=== PATIENT | female | born 1935 | race Caucasian/White ===

== ENCOUNTER 2023-11-01 14:54 | Emergency (ER) | payer OTHER ==
[~2023-11-01] VITALS: Ht 152.4 cm; Wt 58.1 kg
[~2023-11-01 14:54] MED LIST: Aspir 8181 MG PO; CHOL10002 PO; HYDACE10B PO; Halcion0.25 MG PO; LEVFLO500 PO; LOSA50 PO; METF500 PO; SIMV10 PO
[2023-11-01 15:38] LABS: BASOPHILS ABSOLUTE AUTO 0.04 K/mm3 (0.00-0.23); BASOPHILS PERCENT AUTO 0 % (0-2); EOSINOPHILS ABSOLUTE AUTO 0.17 K/mm3 (0.00-0.68); EOSINOPHILS PERCENT AUTO 1 % (0-6); Hematocrit 42.3 % (33.0-51.0); Hemoglobin 13.4 g/dL (11.5-16.0); IMMATURE GRAN ABSOLUTE AUTO 0.06 K/mm3 (0.00-0.10); IMMATURE GRAN PERCENT AUTO 1 % (0-1); LYMPHOCYTES PERCENT AUTO 23 % (21-46); MONOCYTES ABSOLUTE AUTO 1.31 K/mm3 (0.16-1.47); MONOCYTES PERCENT AUTO 10 % (4-13); Mean Corpuscular HGB 31.5 pg (26.0-34.0); Mean Corpuscular HGB Conc 31.7 g/dL (31.5-36.5); Mean Corpuscular Volume 99 fL (80-100); Mean Platelet Volume 12.7 fL (9.1-12.4); NEUTROPHILS ABSOLUTE AUTO 8.34 K/mm3 (1.96-9.15); NEUTROPHILS PERCENT AUTO 65 % (41-73); Platelet Count 210 K/mm3 (150-400); RDW Coefficient Variation 14.7 % (11.7-14.2); RDW Standard Deviation 53.1 fL (35.1-46.3); Red Blood Cell Count 4.26 M/mm3 (3.80-5.20); White Blood Cell Count 12.82 K/mm3 (4.00-11.30)
[2023-11-01 15:56] LABS: Albumin, Blood 3.2 g/dL (3.4-5.0); Albumin/Globulin Ratio 0.8 (0.8-1.8); Bilirubin, Total 0.4 mg/dL (0.1-1.0); Bun/Creatinine Ratio 11.6 (12.0-20.0); Calcium, Blood 9.5 mg/dL (8.5-10.1); Creatinine, Blood 3.02 mg/dL (0.40-1.00); Globulin, Blood 3.8 g/dL (2.2-4.0); Potassium, Blood 4.4 mmol/L (3.5-5.5)
[2023-11-01 16:59] LABS: Source, Urine Clean Catch
[2023-11-01 17:06] LABS: Appearance, Urine Cloudy (Clear); Bilirubin, Urine Neg (Neg); Blood, Urine 2+ (Neg); Color, Urine Yellow (P-Yellow); Glucose Qualitative, Urine 4+ (Neg); Ketones, Urine Neg (Neg); Leukocyte Esterase, Urine 3+ (Neg); Nitrite, Urine Neg (Neg); Protein, Urine 2+ (Neg); Urobilinogen, Urine NORM (Normal)
[2023-11-01 17:17] LABS: White Blood Cells, Urine 50-100 /hpf (0-5)
[2023-11-01 17:18] LABS: Bacteria Few /hpf; Hyaline Casts 0-2 /lpf (0-2); Squamous Epithelial Cells Many /hpf (Few); Yeast/Fungi Urine Many /hpf
[2023-11-01 17:19] LABS: Transitional Epithelial Cells Rare /hpf (0-Rare)
[2023-11-01 17:59] VITALS: BP 183/74
== END 2023-11-01 18:00 | disposition home or self-care (01) ==
LOC: ER 14:54
PROVIDERS: Emergency Medicine
DX: S82.65XA Nondisplaced fracture of lateral malleolus of left fibula, initial encounter for closed fracture (principal); W18.30XA Fall on same level, unspecified, initial encounter; I12.0 Hypertensive chronic kidney disease with stage 5 chronic kidney disease or end stage renal disease; E11.22 Type 2 diabetes mellitus with diabetic chronic kidney disease; N18.5 Chronic kidney disease, stage 5; E78.5 Hyperlipidemia, unspecified; J44.9 Chronic obstructive pulmonary disease, unspecified; F17.210 Nicotine dependence, cigarettes, uncomplicated; Z96.643 Presence of artificial hip joint, bilateral; Z88.5 Allergy status to narcotic agent; Z88.8 Allergy status to other drugs, medicaments and biological substances; Z88.6 Allergy status to analgesic agent; Z79.84 Long term (current) use of oral hypoglycemic drugs; Z79.899 Other long term (current) drug therapy
CPT/HCPCS: 72170; 73562-LT; 73610; 80053; 81001; 85025; 87086; 93005; 93010; 99284-25

== ENCOUNTER 2023-11-02 14:05 | Emergency (ER) | payer OTHER ==
[~2023-11-02] VITALS: Ht 152.4 cm; Wt 58.1 kg
[2023-11-02 15:48] LABS: BASOPHILS ABSOLUTE AUTO 0.03 K/mm3 (0.00-0.23); BASOPHILS PERCENT AUTO 0 % (0-2); EOSINOPHILS ABSOLUTE AUTO 0.22 K/mm3 (0.00-0.68); EOSINOPHILS PERCENT AUTO 2 % (0-6); Hematocrit 40.4 % (33.0-51.0); Hemoglobin 12.9 g/dL (11.5-16.0); IMMATURE GRAN ABSOLUTE AUTO 0.05 K/mm3 (0.00-0.10); IMMATURE GRAN PERCENT AUTO 0 % (0-1); LYMPHOCYTES ABSOLUTE AUTO 2.62 K/mm3 (0.84-5.20); LYMPHOCYTES PERCENT AUTO 22 % (21-46); MONOCYTES ABSOLUTE AUTO 1.23 K/mm3 (0.16-1.47); MONOCYTES PERCENT AUTO 10 % (4-13); Mean Corpuscular HGB 31.5 pg (26.0-34.0); Mean Corpuscular HGB Conc 31.9 g/dL (31.5-36.5); Mean Corpuscular Volume 99 fL (80-100); NEUTROPHILS ABSOLUTE AUTO 7.65 K/mm3 (1.96-9.15); NEUTROPHILS PERCENT AUTO 65 % (41-73); Platelet Count 199 K/mm3 (150-400); RDW Coefficient Variation 14.7 % (11.7-14.2); RDW Standard Deviation 53.9 fL (35.1-46.3); Red Blood Cell Count 4.09 M/mm3 (3.80-5.20)
[2023-11-02 15:49] LABS: Mean Platelet Volume 13.4 fL (9.1-12.4)
[2023-11-02 16:15] LABS: Albumin, Blood 3.2 g/dL (3.4-5.0); Albumin/Globulin Ratio 0.8 (0.8-1.8); Bilirubin, Total 0.4 mg/dL (0.1-1.0); Bun/Creatinine Ratio 11.3 (12.0-20.0); Calcium, Blood 9.7 mg/dL (8.5-10.1); Creatinine, Blood 2.91 mg/dL (0.40-1.00); Globulin, Blood 4.1 g/dL (2.2-4.0); Magnesium, Blood 2.3 mg/dL (1.6-2.4); Total Protein, Blood 7.3 g/dL (6.4-8.2)
[2023-11-02 18:36] VITALS: BP 145/85
== END 2023-11-02 18:36 | disposition home or self-care (01) ==
LOC: ER 14:05
PROVIDERS: Emergency Medicine
DX: S30.0XXA Contusion of lower back and pelvis, initial encounter (principal); W18.30XA Fall on same level, unspecified, initial encounter; I12.0 Hypertensive chronic kidney disease with stage 5 chronic kidney disease or end stage renal disease; E11.22 Type 2 diabetes mellitus with diabetic chronic kidney disease; N18.5 Chronic kidney disease, stage 5; J44.9 Chronic obstructive pulmonary disease, unspecified; F17.210 Nicotine dependence, cigarettes, uncomplicated
CPT/HCPCS: 72170; 80053; 83735; 85025; 99284-25

== ENCOUNTER 2024-05-31 12:51 | Inpatient (IN) | payer OTHER ==
[~2024-05-31] VITALS: Ht 152.4 cm; Wt 56.9 kg
[2024-05-31] MEDS ORDERED: NS 1,000 ML IV SCH ×2 (13:15→16:35)
[2024-05-31 13:33] LABS: BASOPHILS ABSOLUTE AUTO 0.03 K/mm3 (0.00-0.23); BASOPHILS PERCENT AUTO 0 % (0-2); EOSINOPHILS ABSOLUTE AUTO 0.02 K/mm3 (0.00-0.68); EOSINOPHILS PERCENT AUTO 0 % (0-6); Hematocrit 43.5 % (33.0-51.0); Hemoglobin 14.1 g/dL (11.5-16.0); IMMATURE GRAN ABSOLUTE AUTO 0.06 K/mm3 (0.00-0.10); IMMATURE GRAN PERCENT AUTO 0 % (0-1); LYMPHOCYTES PERCENT AUTO 9 % (21-46); MONOCYTES ABSOLUTE AUTO 1.16 K/mm3 (0.16-1.47); MONOCYTES PERCENT AUTO 9 % (4-13); Mean Corpuscular HGB 31.6 pg (26.0-34.0); Mean Corpuscular HGB Conc 32.4 g/dL (31.5-36.5); Mean Corpuscular Volume 98 fL (80-100); NEUTROPHILS ABSOLUTE AUTO 11.11 K/mm3 (1.96-9.15); NEUTROPHILS PERCENT AUTO 82 % (41-73); Platelet Count 194 K/mm3 (150-400); RDW Coefficient Variation 13.9 % (11.7-14.2); RDW Standard Deviation 49.3 fL (35.1-46.3); Red Blood Cell Count 4.46 M/mm3 (3.80-5.20); White Blood Cell Count 13.58 K/mm3 (4.00-11.30)
[2024-05-31 13:35] LABS: Source, Urine Fem Cath
[2024-05-31 13:36] LABS: Mean Platelet Volume 14.2 fL (9.1-12.4)
[2024-05-31 13:40] LABS: Appearance, Urine Turbid (Clear); Bilirubin, Urine Neg (Neg); Blood, Urine 4+ (Neg); Glucose Qualitative, Urine 3+ (Neg); Ketones, Urine Neg (Neg); Leukocyte Esterase, Urine 3+ (Neg); Nitrite, Urine Neg (Neg); Protein, Urine 3+ (Neg); Specific Gravity, Urine 1.025 (1.003-1.022); Urobilinogen, Urine NORM (Normal)
[2024-05-31 13:50] LABS: Color, Urine Pale Yellow (P-Yellow)
[2024-05-31 13:54] LABS: Bacteria Many /hpf; Red Blood Cells, Urine TNTC /hpf (0-2); Renal Epithelial Rare /hpf (0-Rare); Squamous Epithelial Cells Many /hpf (Few); White Blood Cells, Urine TNTC /hpf (0-5); Yeast/Fungi Urine Few /hpf
[2024-05-31 13:57] LABS: Albumin, Blood 3.2 g/dL (3.4-5.0); Albumin/Globulin Ratio 0.9 (0.8-1.8); Bilirubin, Total 0.4 mg/dL (0.1-1.0); Bun/Creatinine Ratio 12.5 (12.0-20.0); Calcium, Blood 9.8 mg/dL (8.5-10.1); Creatinine, Blood 3.76 mg/dL (0.40-1.00); Globulin, Blood 3.7 g/dL (2.2-4.0); Potassium, Blood 4.2 mmol/L (3.5-5.5); Total Protein, Blood 6.9 g/dL (6.4-8.2)
[2024-05-31] MEDS ORDERED: CefTRIAXone Sodium 1,000 MG in NS 100 ML IV ONE (14:40)
[2024-05-31] MEDS ORDERED: Ondansetron HCl 2 MG / ML 2ML Vial IV PRN ×2 (16:35→16:40)
[2024-05-31] MEDS ORDERED: Acetaminophen 325 MG TABLET PO PRN (16:35)
[2024-05-31] MEDS ORDERED: HYDROcodone 10-APAP 325 TAB PO PRN (16:40)
[2024-05-31] MEDS ORDERED: Magnesium Hydroxide Conc 10 ML UDC PO PRN (16:40)
[2024-05-31] MEDS ORDERED: HydrALAZINE HCl 20 MG / ML 1ML Vial IV PRN (16:40)
[2024-05-31] MEDS ORDERED: NS 1,000 ML IV ONE (18:03)
[2024-05-31 18:58] VITALS: BP 198/57
[2024-05-31 19:09] VITALS: BP 171/63
[2024-05-31] MEDS ORDERED: Lactobacil 2-S.Thermo-Bifido 1 1 Cap PO SCH (21:00)
[2024-06-01 02:41] VITALS: BP 153/69
--- NOTE | 2024-06-01 06:14 | NUR ---
pt alert and oriented x2 at shift change HS. pt hallucinating. C/O bats flying around in her room. Increasingly confused during the night. Confused and agitated with lab draws this am. Pt refused labs this am.
--- NOTE | 2024-06-01 07:22 | NUR ---
MD notified of pts urine output throughput through the night. MD aware of labs and pts current status.
[2024-06-01 07:43] VITALS: BP 153/113
[2024-06-01] MEDS ORDERED: Heparin Sodium,Porcine 5,000 UNIT/0.5 ML SDV SC SCH (09:00)
[2024-06-01] MEDS ORDERED: CefTRIAXone Sodium 1,000 MG in NS 100 ML IV SCH (09:00)
[2024-06-01 10:30] LABS: Source, Urine Clean Catch
--- NOTE | 2024-06-01 10:35 | NUR ---
FAMILY UPDATE PT DAUGHTER "RICKY" CALLED FOR AN UPDATE. SHE REPORTS THAT HER MOM TAKES A DAILY ANTIBIOTIC AT BASELINE FOR CHRONIC UTI FROM DR MARTIN. UNABLE TO RECALL WHAT IT IS CALLED, STATES HER MED LIST IS "PRETTY LONG".
[2024-06-01 10:36] LABS: Appearance, Urine Hazy (Clear); Bilirubin, Urine Neg (Neg); Blood, Urine 3+ (Neg); Glucose Qualitative, Urine 3+ (Neg); Ketones, Urine 1+ (Neg); Leukocyte Esterase, Urine 2+ (Neg); Nitrite, Urine Neg (Neg); Protein, Urine 2+ (Neg); Specific Gravity, Urine 1.015 (1.003-1.022); Urobilinogen, Urine NORM (Normal)
[2024-06-01 10:50] LABS: Color, Urine Pale Yellow (P-Yellow)
[2024-06-01 10:51] LABS: White Blood Cells, Urine 25-50 /hpf (0-5); Yeast/Fungi Urine Many /hpf
[2024-06-01 10:53] LABS: Bacteria Few /hpf; Red Blood Cells, Urine 0-2 /hpf (0-2); Squamous Epithelial Cells Many /hpf (Few)
[2024-06-01 14:46] VITALS: BP 187/60
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
--- NOTE | 2024-06-01 15:08 | NUR ---
SHIFT SUMMARY PT BROUGHT IN AFTER BEING FOUND DOWN FOR 2 DAYS PER REPORT, SHE IS CONFUSED T/O THE DAY TODAY BUT PLEASANT WITH STAFF. ACCUSES STAFF OF EXPIRAMENTING ON HER WITH NEW MEDICATIONS BUT SHE ALSO REPORTED THAT SHE WASN'T TRYING TO BE MEAN TO STAFF AND WAS JUST JOKING AROUND WITH US. ASSURED HER THAT I WAS NOT OFFENDED. IV FLUIDS INFUSING T/O THE SHIFT TODAY, PRN HYDRALAZINE GIVEN FOR HER BP TODAY. FAMILY CAME IN TO VISIT WHO REPORTED THAT SHE WAS CONFUSED AT BASELINE AND HAS BEEN GROWING MORE CONFUSED LATELY. PT DOES NOT APPEAR TO BE IMPULSIVE AND HAS NOT TRIED GETTING UP ON HER OWN, SHE HAD A FEW SMALL VOIDS TODAY AND A BM. EKG PERFORMED BY THIS RN AND PLACED IN HER PAPER CHART. NO ACUTE EVENTS THIS SHIFT, CALL LIGHT IN REACH.
[2024-06-01 19:12] VITALS: BP 155/65
[2024-06-02] VITALS (9 sets, daily range): BP systolic 151–209; BP diastolic 62–98
--- NOTE | 2024-06-02 04:48 | NUR ---
SHIFT SUMMARY PATIENT SLEPT WELL AFTER GETTING HER SLEEP MEDICATION ORDER FROM THE HOSPITALIST.TELE SR 78. WITH PAC'S.
[2024-06-02 08:07] LABS: BASOPHILS ABSOLUTE AUTO 0.06 K/mm3 (0.00-0.23); BASOPHILS PERCENT AUTO 1 % (0-2); EOSINOPHILS ABSOLUTE AUTO 0.22 K/mm3 (0.00-0.68); EOSINOPHILS PERCENT AUTO 2 % (0-6); Hematocrit 36.6 % (33.0-51.0); Hemoglobin 11.7 g/dL (11.5-16.0); IMMATURE GRAN ABSOLUTE AUTO 0.12 K/mm3 (0.00-0.10); IMMATURE GRAN PERCENT AUTO 1 % (0-1); LYMPHOCYTES ABSOLUTE AUTO 2.77 K/mm3 (0.84-5.20); LYMPHOCYTES PERCENT AUTO 23 % (21-46); MONOCYTES PERCENT AUTO 10 % (4-13); Mean Corpuscular Volume 97 fL (80-100); NEUTROPHILS ABSOLUTE AUTO 7.64 K/mm3 (1.96-9.15); NEUTROPHILS PERCENT AUTO 64 % (41-73); Platelet Count 171 K/mm3 (150-400); RDW Coefficient Variation 14.2 % (11.7-14.2); RDW Standard Deviation 50.4 fL (35.1-46.3); Red Blood Cell Count 3.77 M/mm3 (3.80-5.20); White Blood Cell Count 12.01 K/mm3 (4.00-11.30)
[2024-06-02 08:15] LABS: Mean Platelet Volume 13.6 fL (9.1-12.4)
[2024-06-02 08:27] LABS: Albumin, Blood 2.3 g/dL (3.4-5.0); Albumin/Globulin Ratio 0.8 (0.8-1.8); Bilirubin, Total 0.4 mg/dL (0.1-1.0); Bun/Creatinine Ratio 11.6 (12.0-20.0); Calcium, Blood 8.8 mg/dL (8.5-10.1); Creatinine, Blood 3.29 mg/dL (0.40-1.00); Magnesium, Blood 2.1 mg/dL (1.6-2.4); Phosphorus, Blood 5.1 mg/dL (2.5-4.9); Potassium, Blood 3.4 mmol/L (3.5-5.5); Total Protein, Blood 5.3 g/dL (6.4-8.2)
[2024-06-02] MEDS ORDERED: Potassium Chloride 10 Meq Tablet SA PO ONE (09:15)
[2024-06-02] MEDS ORDERED: HYDROCODONE-AC1 EAC7 PO (11:22)
[2024-06-02] MEDS ORDERED: Halcion0.25 MG PO (11:23)
[2024-06-02] MEDS ORDERED: METO50ER PO (11:24)
[2024-06-02] MEDS ORDERED: CALC.25 PO (11:25)
[2024-06-02] MEDS ORDERED: Carvedilol 6.25 MG Tab PO SCH (12:52)
--- NOTE | 2024-06-02 18:37 | NUR ---
PT HAS DDONE VERY WELL TODAY SMALL BOUTRS OF CONFUSION BUT HAS BEEN VERY COOPERATIVE WITH CARE, GETTING OUT OF FOR EVERY MEAL AND WORKING WITH PHYSICAL THERAPY. POSSIBLE SNF TRANSFER IN THE MORNING, PT SAID SHE WOULD THINK ABOOUT IT. DAUGHTER WAS CONCERNED PT WOULD BE SENT BACK HOME AND AT RISK OF FALLING
--- NOTE | 2024-06-02 21:44 | NUR ---
NEW ORDER FROM ON-CALL HOSPITALIST IRINEO: AMLODEPINE 5MG PO NOW, ONCE. PT'S BP MANUAL (SEE VS ) LAST . PT IS ASYMPTOMATIC. (PRN HYDRAZALINE 10MG WAS ADMINISTERED EARLIER ON THIS SHIFT (SEE VS.) NOT EFFECTIVE. WILL CONTINUE TO MONITOR, AND TAKE MANUAL BP'S. CHARGE NURSE NOTIFIED.
[2024-06-02] MEDS ORDERED: AmLODIPine Besylate 5 MG Tab PO ONE (21:45)
[2024-06-03 01:15] VITALS: BP 180/82
[2024-06-03 03:37] VITALS: BP 148/67
--- NOTE | 2024-06-03 04:01 | NUR ---
SHIFT SUMMARY PT IS A&O X2-3, ABLE TO MAKE HER NEEDS KNOWN. PT DENIES PAIN AND DISCOMFORT DURING THIS SHIFT. PT HAD ELEVATED BP AT HS: PRN HYDRAZALINE IV ADMINISTERED WITH NO EFFECTIVNESS. THIS FIRE MARSHAL REFINERY CONTACTED ON-CALL HOSPITALIST CRISTIANO CABELLO. NEW ORDER: AMLODEPINE 5MG IV ONCE.BP'S TAKEN MANUALLY/ THE RIGHT ARM. TELE: SINUS@86 WITH PAC'S. PT HAD A LOOSE STOOL AROUND 0400. PER TWO LARRIMAN'S, STRONG ODOR DETECTED,AND THIS FIRE MARSHAL REFINERY CONTACTED REGISTERED DENTAL ASSISTANT HOSPITALIST DR. BAXTER FOR A POSSIBLE STOOL SAMPLE ORDER. WILL HOLD OFF AND MONITOR, IF PT CONTINUES TO HAVE LOOSE STOOLS. NO NEW ORDERS. PT.RESTING WELL T/O THIS SHIFT. NO ACUTE EVENTS DURING THIS SHIFT. BED AT THE LOWEST POSITION, CALL LIGHT IN REACH.
[2024-06-03 06:22] LABS: BASOPHILS ABSOLUTE AUTO 0.06 K/mm3 (0.00-0.23); BASOPHILS PERCENT AUTO 1 % (0-2); EOSINOPHILS ABSOLUTE AUTO 0.15 K/mm3 (0.00-0.68); EOSINOPHILS PERCENT AUTO 1 % (0-6); Hematocrit 38.1 % (33.0-51.0); Hemoglobin 12.5 g/dL (11.5-16.0); IMMATURE GRAN ABSOLUTE AUTO 0.11 K/mm3 (0.00-0.10); IMMATURE GRAN PERCENT AUTO 1 % (0-1); LYMPHOCYTES ABSOLUTE AUTO 1.71 K/mm3 (0.84-5.20); LYMPHOCYTES PERCENT AUTO 14 % (21-46); MONOCYTES ABSOLUTE AUTO 1.01 K/mm3 (0.16-1.47); MONOCYTES PERCENT AUTO 9 % (4-13); Mean Corpuscular HGB 31.6 pg (26.0-34.0); Mean Corpuscular HGB Conc 32.8 g/dL (31.5-36.5); Mean Corpuscular Volume 96 fL (80-100); NEUTROPHILS ABSOLUTE AUTO 8.85 K/mm3 (1.96-9.15); NEUTROPHILS PERCENT AUTO 74 % (41-73); Platelet Count 171 K/mm3 (150-400); RDW Coefficient Variation 14.1 % (11.7-14.2); RDW Standard Deviation 49.4 fL (35.1-46.3); Red Blood Cell Count 3.96 M/mm3 (3.80-5.20); White Blood Cell Count 11.89 K/mm3 (4.00-11.30)
[2024-06-03 06:44] LABS: Albumin, Blood 2.4 g/dL (3.4-5.0); Albumin/Globulin Ratio 0.8 (0.8-1.8); Bilirubin, Total 0.4 mg/dL (0.1-1.0); Bun/Creatinine Ratio 12.1 (12.0-20.0); Calcium, Blood 9.1 mg/dL (8.5-10.1); Creatinine, Blood 3.07 mg/dL (0.40-1.00); Globulin, Blood 3.1 g/dL (2.2-4.0); Potassium, Blood 3.7 mmol/L (3.5-5.5); Total Protein, Blood 5.5 g/dL (6.4-8.2)
[2024-06-03 07:37] VITALS: BP 155/68
[2024-06-03] MEDS ORDERED: Losartan Potassium 50 MG Tab PO SCH (09:00)
[2024-06-03 16:08] VITALS: BP 192/61
--- NOTE | 2024-06-03 18:07 | NUR ---
VERY PLEASENT PT COOPERATIVE WITH CARE, PT HAD NAUSEA AND DIARRHEA TODAY POSSIBLY RELATED TO ANTIBIOTIC. SAMPLES WERE SENT FOR CDIFF, AWAITING RESULTS. NO CHANGE. PT ABLE TO MAKE NEEDS KNOWN.
[2024-06-03 19:45] VITALS: BP 182/65
[2024-06-03] MEDS ORDERED: Melatonin 3 MG Tab PO SCH (21:00)
[2024-06-04 04:07] VITALS: BP 192/67
--- NOTE | 2024-06-04 06:24 | NUR ---
SHIFT SUMMARY NO EMESIS DURING THIS SHIFT, C/O MILD NAUSEA AND MILD ABD PAIN, PT. DECLINED A NEED FOR MEDICATIONS. PT IN ON ENTERIC PRECAUTIONS, D/T C-DIFF LAB RESULTS PENDING. PT REPORTS MILD HEARTBURN THIS AM. PT RESTING T/O THIS SHIFT. NO ACUTE EVENTS/DISTRESS NOTED/REPORTED DURING THIS SHIFT. PT ABLE TO MAKE HER NEEDS KNOWN. BED AT THE LOWEST POSITION, CALL LIGHT IN REACH.
[2024-06-04 06:32] LABS: BASOPHILS ABSOLUTE AUTO 0.05 K/mm3 (0.00-0.23); BASOPHILS PERCENT AUTO 0 % (0-2); EOSINOPHILS ABSOLUTE AUTO 0.01 K/mm3 (0.00-0.68); EOSINOPHILS PERCENT AUTO 0 % (0-6); Hematocrit 38.4 % (33.0-51.0); Hemoglobin 12.5 g/dL (11.5-16.0); IMMATURE GRAN ABSOLUTE AUTO 0.14 K/mm3 (0.00-0.10); IMMATURE GRAN PERCENT AUTO 1 % (0-1); LYMPHOCYTES ABSOLUTE AUTO 1.44 K/mm3 (0.84-5.20); LYMPHOCYTES PERCENT AUTO 10 % (21-46); MONOCYTES ABSOLUTE AUTO 0.69 K/mm3 (0.16-1.47); MONOCYTES PERCENT AUTO 5 % (4-13); Mean Corpuscular HGB 31.3 pg (26.0-34.0); Mean Corpuscular HGB Conc 32.6 g/dL (31.5-36.5); Mean Corpuscular Volume 96 fL (80-100); NEUTROPHILS ABSOLUTE AUTO 11.96 K/mm3 (1.96-9.15); NEUTROPHILS PERCENT AUTO 84 % (41-73); Platelet Count 197 K/mm3 (150-400); RDW Coefficient Variation 14.1 % (11.7-14.2); RDW Standard Deviation 49.6 fL (35.1-46.3); Red Blood Cell Count 3.99 M/mm3 (3.80-5.20); White Blood Cell Count 14.29 K/mm3 (4.00-11.30)
[2024-06-04 06:39] LABS: Albumin, Blood 2.5 g/dL (3.4-5.0); Albumin/Globulin Ratio 0.8 (0.8-1.8); Bilirubin, Total 0.4 mg/dL (0.1-1.0); Bun/Creatinine Ratio 13.3 (12.0-20.0); Calcium, Blood 9.3 mg/dL (8.5-10.1); Globulin, Blood 3.3 g/dL (2.2-4.0); Potassium, Blood 3.8 mmol/L (3.5-5.5); Total Protein, Blood 5.8 g/dL (6.4-8.2)
[2024-06-04 07:10] LABS: C DIFFICILE DNA POSITIVE (Negative)
[2024-06-04 07:35] VITALS: BP 178/57
[2024-06-04] MEDS ORDERED: Vancomycin HCl 125 MG Cap PO SCH (09:00)
[2024-06-04 15:18] VITALS: BP 188/64
--- NOTE | 2024-06-04 18:23 | NUR ---
REPORT RECEIVED VERIFIED. PT DOING VERY WELL TODAY STARTED ON VANCO FOR POSSIBLE CDIFF PROLIFORATION. VSS HARISH VERY WELL, ENC TO GET OUT OF BED FOR EVERY MEAL. PT OT WORKED WITH PT AND CASE MANAGEMENT SETTING SNF FOR PT. NO C/O PAIN JUST A LITTLE NAUSEA
[2024-06-04 19:38] VITALS: BP 167/71
[2024-06-05 02:19] VITALS: BP 189/68
--- NOTE | 2024-06-05 03:35 | NUR ---
OFFICE MACHINE TECHNICIAN SUMMARY BP ELEVATED, OTHERWISE VSS. ANTIHYPERTENSIVE CARDIOLOGY TEACHER. AM RN REPORTED PT POSITIVE FOR C-DIFF. INCONT OF URINE, CHANGED. ABLE TO REPOSITION SELF IN BED WITHOUT ASSIST. MED TELE SR IN THE 60'S. RECEIVING PO VANCO FOR C-DIFF. HAS BEEN RESTING QUIETLY WITH OCASIONAL INTERRUPTION. CALL LIGHT IN REACH, RAILS UP X 2 AND BED IN LOW POSITION FOR SAFETY. ISOLATION PRECAUTIONS MAINTAINED. WILL CONTINUE TO MONITOR.
[2024-06-05 05:50] LABS: BASOPHILS ABSOLUTE AUTO 0.03 K/mm3 (0.00-0.23); BASOPHILS PERCENT AUTO 0 % (0-2); EOSINOPHILS ABSOLUTE AUTO 0.01 K/mm3 (0.00-0.68); EOSINOPHILS PERCENT AUTO 0 % (0-6); Hematocrit 36.6 % (33.0-51.0); Hemoglobin 12.1 g/dL (11.5-16.0); IMMATURE GRAN PERCENT AUTO 1 % (0-1); LYMPHOCYTES ABSOLUTE AUTO 1.37 K/mm3 (0.84-5.20); LYMPHOCYTES PERCENT AUTO 12 % (21-46); MONOCYTES ABSOLUTE AUTO 1.26 K/mm3 (0.16-1.47); MONOCYTES PERCENT AUTO 11 % (4-13); Mean Corpuscular HGB 31.6 pg (26.0-34.0); Mean Corpuscular HGB Conc 33.1 g/dL (31.5-36.5); Mean Corpuscular Volume 96 fL (80-100); NEUTROPHILS PERCENT AUTO 77 % (41-73); Platelet Count 185 K/mm3 (150-400); RDW Coefficient Variation 14.1 % (11.7-14.2); RDW Standard Deviation 49.4 fL (35.1-46.3); Red Blood Cell Count 3.83 M/mm3 (3.80-5.20); White Blood Cell Count 11.77 K/mm3 (4.00-11.30)
[2024-06-05 06:13] LABS: Bun/Creatinine Ratio 15.2 (12.0-20.0); Calcium, Blood 9.5 mg/dL (8.5-10.1); Creatinine, Blood 3.16 mg/dL (0.40-1.00); Potassium, Blood 3.9 mmol/L (3.5-5.5)
[2024-06-05 08:42] VITALS: BP 188/66
[2024-06-05 09:43] VITALS: BP 170/62
[2024-06-05] MEDS ORDERED: Lactated Ringer's 1,000 ML IV SCH (11:00)
[2024-06-05 15:58] VITALS: BP 192/95
[2024-06-05 16:52] VITALS: BP 170/84
[2024-06-05] MEDS ORDERED: Carvedilol 6.25 MG Tab PO SCH (17:00)
--- NOTE | 2024-06-05 18:21 | NUR ---
SHIFT SUMMARY PATIENT A/OX4 THIS SHIFT, BUT FORGETFUL. SPOKE WITH PATIENT'S SISTER THIS MORNING VIA TELEPHONE AND UPDATED HER ON PATIENT STATUS PER PATIENT'S REQUEST. PRN HYDRALAZINE GIVEN X2 THIS SHIFT FOR SBP 190s. PATIENT 1 PERSON ASSIST WITH TRANSFERS, UP IN CHAIR FOR BREAKFAST BUT REFUSED TO GET UP FOR LUNCH AND DINNER. PATIENT WITH LOW APPETITE, SILVER MINER ASSESSED PATIENT THIS AFTERNOON. NO BOWEL MOVEMENTS THIS SHIFT. NO OTHER CONCERNS AT THIS TIME.
[2024-06-05 19:33] VITALS: BP 180/68
[2024-06-06 02:40] VITALS: BP 185/63
--- NOTE | 2024-06-06 03:39 | NUR ---
NATIONAL INSURANCE OFFICER SUMMARY BP REMAINS ELEVATED, OTHERWISE VSS. VOICED HASNT HAD A BM "FOR TWO DAYS", NO NOTED LOOSE STOOL BUT REMAINS ON ISOLATION PRECAUTIONS UNTIL C-DIFF IS NEGATIVE. ALERT TO QUESTIONS ASKED. RESPS EVEN BUT REMAIN DIMINISHED TO AUSCULTATION. REQUESTED AND RECEIVED PAIN MED FOR ABD PAIN - SEE MAR FOR DETAILS. OTHERWISE HSA BEEN RESTING QUIETLY WITH FEW INTERRUPTIONS. ABLE TO REPOSITION SELF IN BED WITHOUT ASSIST. CALL LIGHT INREACH, RAILS UP X 2 AND BED IN LOW POSITION. WILL CONTINUE TO MONITOR.
[2024-06-06 05:39] LABS: BASOPHILS ABSOLUTE AUTO 0.02 K/mm3 (0.00-0.23); BASOPHILS PERCENT AUTO 0 % (0-2); EOSINOPHILS PERCENT AUTO 0 % (0-6); Hemoglobin 11.7 g/dL (11.5-16.0); IMMATURE GRAN ABSOLUTE AUTO 0.11 K/mm3 (0.00-0.10); IMMATURE GRAN PERCENT AUTO 1 % (0-1); LYMPHOCYTES ABSOLUTE AUTO 1.66 K/mm3 (0.84-5.20); LYMPHOCYTES PERCENT AUTO 13 % (21-46); MONOCYTES ABSOLUTE AUTO 1.41 K/mm3 (0.16-1.47); MONOCYTES PERCENT AUTO 11 % (4-13); Mean Corpuscular HGB 31.4 pg (26.0-34.0); Mean Corpuscular HGB Conc 33.4 g/dL (31.5-36.5); Mean Corpuscular Volume 94 fL (80-100); NEUTROPHILS PERCENT AUTO 75 % (41-73); Platelet Count 169 K/mm3 (150-400); RDW Coefficient Variation 13.9 % (11.7-14.2); RDW Standard Deviation 46.6 fL (35.1-46.3); Red Blood Cell Count 3.73 M/mm3 (3.80-5.20)
[2024-06-06 06:36] LABS: Albumin, Blood 2.2 g/dL (3.4-5.0); Albumin/Globulin Ratio 0.8 (0.8-1.8); Bilirubin, Total 0.2 mg/dL (0.1-1.0); Calcium, Blood 9.3 mg/dL (8.5-10.1); Globulin, Blood 2.9 g/dL (2.2-4.0); Potassium, Blood 3.8 mmol/L (3.5-5.5); Total Protein, Blood 5.1 g/dL (6.4-8.2)
--- NOTE | 2024-06-06 07:56 | NUR ---
VERBAL ORDERS VERBAL ORDERS RECIEVED FR DR. ESPOSITO TO DISCONTINUE CONTACT ENTERIC PRECAUTIONS.
[2024-06-06 08:08] VITALS: BP 182/64
[2024-06-06 09:21] VITALS: BP 158/74
--- NOTE | 2024-06-06 12:42 | NUR ---
VERBAL ORDERS VERBAL ORDERS RECIEVED FOR MIRALAX PACKET BID PRN FOR CONSTIPATION. PATIENT WITH NO BM FOR TWO DAYS AND REQUESTING BOWEL MEDS.
[2024-06-06] MEDS ORDERED: Polyethylene Glycol 3350 17 gm PO PRN (12:45)
[2024-06-06 16:56] VITALS: BP 152/58
--- NOTE | 2024-06-06 18:17 | NUR ---
SHIFT SUMMARY PATIENT A/O X4 AND FORGETFUL AT TIMES. PATIENT STATES IS HAVING NAUSEA BUT DENIES NEED FOR ZOFRAN THIS AM. PATIENT WITHOUT BM FOR 2 DAYS, MD INFORMED AND NEW ORDER FOR MIRALAX RECEIVED. ADMINISTERED MIRALAX THIS AFTERNOON AND WAS EFFECTIVE. PATIENT HAD FORMED BM. PATIENT REMOVED FROM CONTACT ENTERIC PRECAUTIONS TODAY. TELEMETRY IN PLACE, NO EVENTS NOTED. SBP CONTINUES TO BE ELEVATED, PRN HYDRALAZINE GIVEN PER MAR. PATIENT HAD PHYSICAL THERAPY AND OCCUPATIONAL THERAPY THIS EVENING, BUT HAS CONTINUED TO REFUSE TO GET OUT OF BED THIS SHIFT. RECEIVED A BED BATH THIS AFTERNOON. SPOKE WITH PATIENT'S DAUGHTER, RICKY, VIA TELEPHONE AND UPDATED HER OF PATIENT'S IMPROVED STATUS. NO OTHER CONCERNS AT THIS TIME.
[2024-06-06 19:15] VITALS: BP 185/68
--- NOTE | 2024-06-07 06:00 | NUR ---
SHIFT SUMMARY: Pt is admitted for ground level fall and is a DNR. is alert and able to make needs known. ADLs have been 1p throughout shift. Denies pain or discomfort when asked. Telly report sinus in the 80s with PACs
[2024-06-07] MEDS ORDERED: Sodium Bicarb 8.4% Inj 100 MEQ in Sodium Chloride 0.45% 1,000 ML IV SCH (07:00)
[2024-06-07] MEDS ORDERED: Acetaminophen325 M1 PO (07:22)
[2024-06-07] MEDS ORDERED: MELATONIN5 M1 PO (07:22)
[2024-06-07] MEDS ORDERED: Carvedilol12.5 MG PO (07:22)
[2024-06-07] MEDS ORDERED: MIRALAX17 GM PO (07:23)
[2024-06-07 08:01] VITALS: BP 191/85
[2024-06-07 09:02] VITALS: BP 162/76
[2024-06-07 10:12] LABS: SARS-Cov-2 (COVID-19) PCR, MMC POSITIVE (NEGATIVE)
--- NOTE | 2024-06-07 10:54 | NUR ---
COVID POSITIVE PATIENT TESTED FOR COVID FOR PLACEMENT TO SNF, RESULTED POSITIVE. PATIENT PLACED ON SPECIAL AEROSOL PRECAUTIONS. CHARGE NURSE AND CARE COORDINATER INFORMED.
--- NOTE | 2024-06-07 18:12 | NUR ---
SHIFT SUMMARY PATIENT A/OX4 BUT FORGETFUL AND BECAME INCREASINGLY CONFUSED THIS AFTERNOON. PATIENT WITH MACULAR DEGENERATION AND PARTIALLY BLIND, ABLE TO MAKE NEEDS KNOWN. INEFFECTIVELY USES CALL LIGHT DUE TO VISUAL IMPAIRMENT AND WILL CALL STAFF PRESSING THE BUTTONS WHEN TRYING TO USE HER TELEVISION REMOTE. PATIENT CONTINUES TO HAVE ELEVATED BLOOD PRESSURE, PRN HYDRALAZINE GIVEN PER MAR. PATIENT INCONTINENT OF URINE, BLADDER SCAN THIS AM SHOWED RETENTION OF 214 ML. RENAL ULTRASOUND OBTAINED THIS AM. PUREWICK PLACED THIS AFTERNOON TO OBTAIN MORE ACCURATE OUTPUT. DISCHARGE ORDERS PLACED THIS MORNING, WAS COVID TESTED FOR PLACEMENT TO SNF. HOWEVER, PATIENT IS POSITIVE FOR COVID, ASYMPTOMATIC WITH ACTIVE INFECTION. DAUGHTER, RICKY, MADE AWARE. PATIENT ADAMANTLY REFUSING TO GET OUT OF BED THIS SHIFT, ALSO REFUSED TO PARTICIPATE IN OT. PATIENT CURRENTLY ON SPECIALIZED AEROSOL PRECAUTIONS FOR COVID. PATIENT CONTINUES TO HAVE POOR APPETITE. NO OTHER CONCERNS AT THIS TIME.
[2024-06-07 18:18] VITALS: BP 142/52
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
[2024-06-07 19:49] VITALS: BP 149/65
[2024-06-08 03:25] VITALS: BP 149/67
[2024-06-08 06:11] LABS: Albumin, Blood 1.8 g/dL (3.4-5.0); Anion Gap 16 mmol/L (3-11); Blood Urea Nitrogen 90 mg/dL (8-24); Bun/Creatinine Ratio 36.4 (12.0-20.0); CO2, Blood 15 mmol/L (21-32); Chloride, Blood 110 mmol/L (98-108); Creatinine, Blood 2.47 mg/dL (0.40-1.00); Glomerular Filtration Rate 19 (60-); Glucose, Blood 249 mg/dL (70-99); Magnesium, Blood 1.9 mg/dL (1.6-2.4); Phosphorus, Blood 4.3 mg/dL (2.5-4.9); Sodium, Blood 137 mmol/L (136-145)
--- NOTE | 2024-06-08 06:27 | NUR ---
SHIFT SUMMARY: Pt is admitted for ground level fall and is a DNR. is alert and able to make needs known. ADLs have been 1p throughout shift. Denies pain or discomfort when asked. Telly report sinus in the 80s.noted increase in confusion from night prior but still able to answer all the basic questions as before. Also was noted to have hallucinations through the night.
[2024-06-08 06:29] LABS: Hematocrit 25.6 % (33.0-51.0); Hemoglobin 8.7 g/dL (11.5-16.0)
[2024-06-08 07:06] VITALS: BP 150/55
[2024-06-08] MEDS ORDERED: Sodium Bicarb 8.4% Inj 100 MEQ in Sodium Chloride 0.45% 1,000 ML IV SCH (07:20)
--- NOTE | 2024-06-08 13:11 | NUR ---
UPON ASSESSMENT NOTICED THAT PATIENT HAS PLAQUE/TRUSH ON TONGUE AND ROOF OF MOUTH CALL MADE TO DR. ESPOSITO; ANSWRED BY DR. FORRESTER. ADVISED TO START NYSTATIN ORAL SUSPENSION BID. ORDER PLACED.
[2024-06-08 13:15] LABS: Hematocrit 24.4 % (33.0-51.0); Hemoglobin 8.2 g/dL (11.5-16.0)
[2024-06-08] MEDS ORDERED: Darbepoetin Alfa in Polysorbat 25 MCG/0.42 ML Syringe SC SCH (16:00)
[2024-06-08 16:24] VITALS: BP 139/63
--- NOTE | 2024-06-08 16:47 | NUR ---
BLADDER SCANNED PATIENT DUE TO 0 VOID THIS AFTERNOON. SCANNED AT 224. CALL MADE TO DR. LIMA; HE ADVISED TO CHANGE NOTIFY MD ORDER FROM >200 TO >350. ORDER CHANGED. PATIENT'S ORAL INTAKE HAS BEEN POOR AND HAS CKD.
--- NOTE | 2024-06-08 17:50 | NUR ---
SHIFT SUMMARY: PT IS A&OX3-VERY CONFUSED. SHE CAN ANSWER QUESTIONS, HAVE A CONVERSATION, BUT RAMBLES ON AND CAN BE INCOHERENT, ALONG WITH AUDIO AND VISUIAL HALLUNICATIONS. SHE PULLS AT LINES AND GETS HERSELF SIDEWAYS/LEGS OVER THE BED. HER ORAL INTAKE IS POOR AND SHE IS VERY WEAK. SHE IS GETTING BICARB AT 75ML/HR. SHE IS INCONTINENT, HASN'T USED HER CALL LIGHT, SHE IS PLEASANT AND COOPERATIVE. SHE HAS A WEAK COUGH, NON PRODUCTIVE, COMPLAINS OF HEADACHES. SHE HAS REMAINED IN BED AND DID WORK WITH OT TODAY, BUT WAS TOOK WEAK AND FAIR MORE SO THAN HER LAST EVALUATION. SHE IS IN BED; STARING AT THE CEILING, MOUTH BREATHING, SHE IS RESPONSIVE, NO SIGNS OR SYMPTOMS OF DISTRESS, PLAN OF CARE ONGOING.
[2024-06-08 20:44] VITALS: BP 133/43
[2024-06-08] MEDS ORDERED: Nystatin 100,000 Unit/ML Susp 5 ML UDC SS SCH (21:00)
[2024-06-09] VITALS (9 sets, daily range): BP systolic 113–168; BP diastolic 42–84
--- NOTE | 2024-06-09 04:06 | NUR ---
0345: Patient noted to have large, loose black, tarry bowel movement in bed. Patient cleaned with assistance, sample collected into specimen container using spoon. RN notified Dr. Caro, resident, regarding bowel movement, concerns for decreasing hemoglobin, order for occult guiac test acquired and entered by RN. Specimen labeled per facility protocols, double bagged and sent to lab department for testing.
[2024-06-09 05:35] LABS: Hematocrit 20.1 % (33.0-51.0); Hemoglobin 6.6 g/dL (11.5-16.0)
[2024-06-09] MEDS ORDERED: Pantoprazole Sodium 40 MG Injection IV ONE (06:00)
[2024-06-09 06:01] LABS: Albumin, Blood 1.9 g/dL (3.4-5.0); Anion Gap 14 mmol/L (3-11); Blood Urea Nitrogen 119 mg/dL (8-24); Bun/Creatinine Ratio 43.1 (12.0-20.0); CO2, Blood 19 mmol/L (21-32); Calcium, Blood 8.1 mg/dL (8.5-10.1); Chloride, Blood 110 mmol/L (98-108); Creatinine, Blood 2.76 mg/dL (0.40-1.00); Glomerular Filtration Rate 16 (60-); Glucose, Blood 286 mg/dL (70-99); Magnesium, Blood 2.1 mg/dL (1.6-2.4); Phosphorus, Blood 4.7 mg/dL (2.5-4.9); Sodium, Blood 140 mmol/L (136-145)
[2024-06-09] MEDS ORDERED: Sodium Bicarb 8.4% Inj 100 MEQ in Sodium Chloride 0.45% 1,000 ML IV SCH (06:30)
[2024-06-09] MEDS ORDERED: Potassium Chl 10MEQ/Water100ML 100 ML IV SCH (06:35)
--- NOTE | 2024-06-09 06:40 | NUR ---
Patient alert and oriented to self only, confused to location/event/time; patient continuously verbally and physically responding to internal stimuli, looking around room and talking to beings not present. Patient had two dark, tarry bowel movements overnight, guaic stool tested positive, hemoglobin trended down further to 6.6. Dr. Abbott, resident, placed orders for type and screen, one unit of PRBC's, and is attempting to reach daughter in order to gain consent for blood product administration. Sodium bicarb infusion tolerated well to new PIV to left forearm, rate decreased per orders from Dr. Hinkle.
--- NOTE | 2024-06-09 07:54 | NUR ---
CALL MADE TO DR. LIMA AT 0750 [facility] [address] PATIENT HAVING A LARGE WATER BLACK STOOL THIS MORNING AND GAVE AN UPDATE ON INDUSTRIAL MACHINE OPERATOR. PATIENT IS RESPONSIVE, ABLE TO MAKE EYE CONTACT AND HAVE A CONVERSATION/ANSWER QUESTIONS. HER ORIENTATION IS THE SAME YESTERDAY 06/08/24-SHE KNOWS HER FULL NAME/, THE DATE OFF BY A COUPLE OF DAYS, AND SHE SAYS SHE IS IN HER HOME IN [facility]. HER DAUGHTER'S NAME IS RICKY. PATIENT STILL STARING UP AT CEILING AND REACHING FOR THINGS. DR. LIMA WILL COME UP TO SEE PATIENT AND COMPLETE BLOOD CONSENT AND ATTEMPT TO GET A HOLD OF THE PATIENT'S DAUGHTER. BLOOD BANK CALLED AND REQUESTED TO GET BLOOD READY. WILL HAVE THE PATIENT BE NPO FOR NOW.
[2024-06-09 08:12] LABS: IMMATURE RETIC FRACTION 37.4 % (2.3-16.0); RETIC HGB EQUIVALENT 36.3 pg (28.20-36.60); RETICULOCYTE ABSOLUTE 0.0676 M/mm3 (0.0200-0.1100); RETICULOCYTE COUNT PERCENT 3.16 % (0.50-2.50)
[2024-06-09 08:26] LABS: Percent Saturation 46.2 % (15.0-50.0)
[2024-06-09] MEDS ORDERED: NS 500 ML IV SCH (10:30)
[2024-06-09] MEDS ORDERED: NS 250 ML IV PRN (10:30)
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
--- NOTE | 2024-06-09 16:15 | NUR ---
CALLED AND GAVE AN UPATED ON THE PATIENT TO DR. LIMA. DISCUSSED ADDING LR AT 75ML/HR 1X BAG AND THAT PATIENT CAN HAVE LIQUIDS FOR NOW AND BE NPO AT MIDNIGHT. ALSO ADVISED TO D/C PROBIOTIC. UPDATE ALSO GIVEN TO PATIENT'S DAUGHTER RICKY.
[2024-06-09] MEDS ORDERED: Lactated Ringer's 1,000 ML IV SCH (16:20)
[2024-06-09] MEDS ORDERED: Pantoprazole Sodium 40 MG Injection IV SCH (16:30)
[2024-06-09 16:44] LABS: Hemoglobin 8.9 g/dL (11.5-16.0)
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
--- NOTE | 2024-06-09 18:22 | NUR ---
MISC: PATIENT'S DAUGHTER SHARED THAT PATIENT SMOKES 2.5 PACKS DAILY-THIS WAS RELAYED TO DR. KIMBLE. ALSO THIS RN FEELS THAT THE PATIENT SHOULD HAVE A SPEECH EVALUATION TO ASSESS SWALLOW DUE TO WETNESS IN THROAT AND OCASSIONAL COUGHING WHEN EATING/DRINKING. CALL MADE TO DR. MITZY BARNES AND GAVE UPDATE ON PATIENT. HE STATED THAT A SPEECH ORDER WOULD HAVE TO WAIT UNTIL TUESDAY FOR THE NEW TEAM TO DECIDE.
--- NOTE | 2024-06-09 23:18 | NUR ---
2317: RN received call from Dr. Brown regarding NPO status, procedure tomorrow morning. Per MD, keep patient water only, ignore NPO at this time due to anesthesiologist being occupied with 6 hour surgery this coming morning.
[2024-06-10] VITALS (10 sets, daily range): BP systolic 84–187; BP diastolic 46–90
[2024-06-10] MEDS ORDERED: Pantoprazole Sodium 40 MG Injection IV SCH (06:00)
[2024-06-10 06:23] LABS: BASOPHILS ABSOLUTE AUTO 0.05 K/mm3 (0.00-0.23); BASOPHILS PERCENT AUTO 0 % (0-2); EOSINOPHILS ABSOLUTE AUTO 0.06 K/mm3 (0.00-0.68); EOSINOPHILS PERCENT AUTO 0 % (0-6); Hematocrit 25.2 % (33.0-51.0); Hemoglobin 8.7 g/dL (11.5-16.0); IMMATURE GRAN ABSOLUTE AUTO 0.71 K/mm3 (0.00-0.10); IMMATURE GRAN PERCENT AUTO 5 % (0-1); LYMPHOCYTES ABSOLUTE AUTO 2.71 K/mm3 (0.84-5.20); LYMPHOCYTES PERCENT AUTO 19 % (21-46); MONOCYTES ABSOLUTE AUTO 1.39 K/mm3 (0.16-1.47); MONOCYTES PERCENT AUTO 10 % (4-13); Mean Corpuscular HGB 31.3 pg (26.0-34.0); Mean Corpuscular HGB Conc 34.5 g/dL (31.5-36.5); Mean Corpuscular Volume 91 fL (80-100); NEUTROPHILS ABSOLUTE AUTO 9.07 K/mm3 (1.96-9.15); NEUTROPHILS PERCENT AUTO 65 % (41-73); NRBC ABSOLUTE 0.13 K/mm3 (0.00-0.02); NRBC Auto 0.9 /100 WBC (0.0-0.2); RDW Coefficient Variation 14.3 % (11.7-14.2); RDW Standard Deviation 45.4 fL (35.1-46.3); Red Blood Cell Count 2.78 M/mm3 (3.80-5.20); White Blood Cell Count 13.99 K/mm3 (4.00-11.30)
[2024-06-10 06:28] LABS: Platelet Count 155 K/mm3 (150-400)
[2024-06-10 06:46] LABS: BASOPHILS PERCENT MAN 0 % (0-2); EOSINOPHILS PERCENT MAN 0 % (0-6); LYMPHOCYTES ABSOLUTE MAN 1.39 K/mm3 (0.84-5.20); LYMPHOCYTES PERCENT MAN 10 % (21-46); METAMYELOCYTE ABSOLUTE MAN 0.27 K/mm3 (0.00-0.00); METAMYELOCYTE PERCENT MAN 2 % (0-0); MONOCYTES ABSOLUTE MAN 1.53 K/mm3 (0.16-1.47); MONOCYTES PERCENT MAN 11 % (4-13); MYELOCYTE ABSOLUTE MAN 0.13 K/mm3 (0.00-0.00); MYELOCYTE PERCENT MAN 1 % (0-0); NEUTROPHILS ABSOLUTE MAN 10.63 K/mm3 (1.96-9.15); SEG NEUTROPHILS PERCENT MAN 76 % (41-73); TOTAL CELLS COUNTED 100
--- NOTE | 2024-06-10 06:47 | NUR ---
Patient alert and oriented x3, following commands appropriately, tolerating room air well. Bicarb drip and LR infusing to left forearm PIV, tolerating well. Patient voiding into purewick appropriately.
[2024-06-10 06:53] LABS: Albumin, Blood 1.9 g/dL (3.4-5.0); Anion Gap 12 mmol/L (3-11); Blood Urea Nitrogen 105 mg/dL (8-24); Bun/Creatinine Ratio 41.5 (12.0-20.0); CO2, Blood 22 mmol/L (21-32); Calcium, Blood 8.4 mg/dL (8.5-10.1); Chloride, Blood 112 mmol/L (98-108); Creatinine, Blood 2.53 mg/dL (0.40-1.00); Glomerular Filtration Rate 18 (60-); Glucose, Blood 201 mg/dL (70-99); Magnesium, Blood 1.9 mg/dL (1.6-2.4); Phosphorus, Blood 4.2 mg/dL (2.5-4.9); Potassium, Blood 3.4 mmol/L (3.5-5.5); Sodium, Blood 143 mmol/L (136-145)
[2024-06-10] MEDS ORDERED: Potassium Chl 20MEQ/Water100ML 100 ML IV STA (07:10)
--- NOTE | 2024-06-10 07:35 | NUR ---
VO NOTE: DR. GARCIA ROUND ON PATIENT AT 0715. RECEIVED VO, PER DR. GARCIA TO INFUSED CLINIMIX WITH NA 140 MEQ/L @ 50 MLS/HR. THEN DC SODIUM BICARB DRIP ONCE CLINIMIX IS ON.
[2024-06-10] MEDS ORDERED: Sodium Chloride 105 MEQ in Aa 4.25%/Calcium/Lytes/D5w 1,000 ML IV SCH (07:40)
[2024-06-10] MEDS ORDERED: Sodium Bicarb 8.4% Inj 100 MEQ in Sodium Chloride 0.45% 1,000 ML IV SCH (07:40)
[2024-06-10] MEDS ORDERED: Losartan Potassium 50 MG Tab PO SCH (08:00)
[2024-06-10] MEDS ORDERED: Albuterol 2.5 MG/3 ML VIAL INH PRN (15:50)
[2024-06-10] MEDS ORDERED: MethylPREDNISolone Sod Succ 125 MG Vial IV SCH (16:00)
[2024-06-10] MEDS ORDERED: dexAMETHasone 4 MG TAB PO SCH (16:00)
[2024-06-10] MEDS ORDERED: Albuterol HFA200 ACT/6.7 GM INH INH PRN (16:40)
--- NOTE | 2024-06-10 17:25 | NUR ---
SHIFT SUMMARY: PATIENT A/O TO SELF, PLACED AND PERSON, CONFUSED TO DATES AND CURRENT SITUATIONS BUT EASILY REDIRECTABLE. PATIENT O2 AT BEGINNING OF SHIFT DROPPED TO MID 80'S ON RA, PLACED ON 2L VIA NC SATING 93-94% T/O SHIFT, LUNGS WHEEZY T/O TO AUSCULTATION. DR. ESPOSITO ORDERED CHEST X-RAY; RESULT L PLEURAL EFFUSION AND COPD. PATIENT STARTED ON IV SOLUMEDROL THIS PM. PATIENT ON CL DIET, INCONTIN OF BLADDER, PUREWICK AND ATTENDS IN PLACED. PATIENT RESTING IN BED ON/OFF, REPOSITIONED T/O SHIFT. PATIENT HAS PIV TO LAC INFUSING CLINIMIX AT 50 MLS/HR. PATIENT HYPERTINSIVE, MEDICATED c PRN IV HYDRALZINE. PATIENT STILL ON ISOLATION FOR COVID POSITIVE. BED ALARM ON FOR SAFETY. CALL LIGHT IN REACH.
[2024-06-11 02:18] VITALS: BP 181/70
--- NOTE | 2024-06-11 06:06 | NUR ---
Patient alert and oriented x2-3, moderately hypertensive but otherwise VSS. PRN hypertension and pain medication given, see eMAR. Purewick in place, collecting urine appropriately. Patient turned Q2 hrs in bed overnight with moderate assistance. Powerglide IV placed to left upper arm by garland makerMARIE navarro, Clinimix infusion changed to new line.
[2024-06-11 06:13] LABS: Hematocrit 25.9 % (33.0-51.0); Hemoglobin 8.8 g/dL (11.5-16.0)
[2024-06-11 06:39] LABS: Anion Gap 13 mmol/L (3-11); Blood Urea Nitrogen 101 mg/dL (8-24); Bun/Creatinine Ratio 39.6 (12.0-20.0); CO2, Blood 20 mmol/L (21-32); Calcium, Blood 8.5 mg/dL (8.5-10.1); Chloride, Blood 113 mmol/L (98-108); Creatinine, Blood 2.55 mg/dL (0.40-1.00); Glomerular Filtration Rate 18 (60-); Glucose, Blood 462 mg/dL (70-99); Magnesium, Blood 2.2 mg/dL (1.6-2.4); Phosphorus, Blood 5.6 mg/dL (2.5-4.9); Potassium, Blood 4.5 mmol/L (3.5-5.5); Sodium, Blood 141 mmol/L (136-145)
[2024-06-11 07:26] VITALS: BP 181/62
[2024-06-11] MEDS ORDERED: MethylPREDNISolone Sod Succ 125 MG Vial IV SCH (09:00)
[2024-06-11] MEDS ORDERED: CALCIUM GLUCONATE IV SCH (17:00)
[2024-06-11] MEDS ORDERED: SODIUM ACETATE 30 MEQ IV SCH (17:00)
[2024-06-11] MEDS ORDERED: [UNRECOGNIZED DRUG - OTHER] IV SCH (17:00)
[2024-06-11] MEDS ORDERED: SODIUM CHLORIDE IV SCH (17:00)
--- NOTE | 2024-06-11 18:25 | NUR ---
SHIFT SUMMARY PATIENT ALERT AND INTERACTIVE BUT VERY WEAK. PATIENT RELUCTANT TO WORK WITH THERAPY BECAUSE OF BEING WEAK. SPEECH THERAPY CHANGED PATIENT TO STRICT NPO BECAUSE OF FREQUENT COUGH DURING EVALUATION. PATIENT CHANGED TO PPN FOR HYDRATION/NUTRITION. DISCUSSED CONCERNS OF FAILURE TO THRIVE ALONG WITH CONCERNS OF SAFETY SINCE PATIENT CURRENTLY LIVES ALONE.
[2024-06-11 19:27] VITALS: BP 186/74
--- NOTE | 2024-06-12 05:11 | NUR ---
SHIFT SUMMARY: Pt is admitted for ground level fall and is a DNR. is alert and able to make needs known. Some confusion noted. A couple of hallucinations noted but drastically decreased from last time this LN worked with this PT. some pain noted that was managed with positioning. On enhanced ISO for covid. Powerglide to left upper arm and is currently running PPN at 50ml/h.
[2024-06-12 05:19] VITALS: BP 182/67
[2024-06-12 05:24] LABS: Hematocrit 26.9 % (33.0-51.0); Hemoglobin 8.7 g/dL (11.5-16.0)
--- NOTE | 2024-06-12 05:26 | NUR ---
DURING MORNING VITALS PATIENT DESATTING INTO THE LOW 80'S-83-84% ON 1L OF OXYGEN. OXYGEN TURNED UP TO 7L'S UNTIL PATIENT RECOVERED-THIS TOOK A MINUTE TO TWO. PATIENT RECOVERED TO 92%. OXYGEN BACKED DOWN TO 3L'S VIA NASAL CANNULA-PATINET SATTIING AT 92% VIA VITALS TOWER. THIS RN CALLED THE HOSPITALIST AND NOTIFIED OF NEED FOR INCREASE IN OXYGEN-CONTINUOUS PULSE OXOMETER ORDERED.
[2024-06-12 06:07] LABS: Albumin, Blood 2.2 g/dL (3.4-5.0); Anion Gap 13 mmol/L (3-11); Blood Urea Nitrogen 99 mg/dL (8-24); Bun/Creatinine Ratio 39.6 (12.0-20.0); CO2, Blood 21 mmol/L (21-32); Calcium, Blood 9.2 mg/dL (8.5-10.1); Chloride, Blood 114 mmol/L (98-108); Glomerular Filtration Rate 18 (60-); Glucose, Blood 498 mg/dL (70-99); Magnesium, Blood 2.3 mg/dL (1.6-2.4); Phosphorus, Blood 5.7 mg/dL (2.5-4.9); Potassium, Blood 4.4 mmol/L (3.5-5.5); Sodium, Blood 144 mmol/L (136-145); Triglycerides 249 mg/dL (30-160)
[2024-06-12 07:51] VITALS: BP 172/66
[2024-06-12] MEDS ORDERED: Albuterol 2.5 MG/3 ML VIAL INH PRN (08:10)
[2024-06-12] MEDS ORDERED: Furosemide 10 MG / ML 2ML Vial IV ONE (14:00)
--- NOTE | 2024-06-12 14:41 | NUR ---
Received call from pt's bedside nurse, she states the x-ray and lasix were not effective, and her work of breathing is worsening. Relayed this information with Melissa, who elects comfort care for her. Condolences given. Attempting to reach hospitalist for any new orders.
[2024-06-12] MEDS ORDERED: Morphine Sulfate 20 MG/1ML 1 ML Oral Syringe SL PRN (14:55)
[2024-06-12] MEDS ORDERED: Morphine Sulfate 20 MG/1ML 1 ML Oral Syringe SL ONE (14:55)
[2024-06-12] MEDS ORDERED: Morphine Sulfate 10 MG/ML 1MLSYR IV PRN (14:55)
[2024-06-12] MEDS ORDERED: LORazepam 2 MG/ML 1ML Injection IV PRN (14:55)
[2024-06-12] MEDS ORDERED: LORazepam 1 MG Tab PO PRN (14:55)
--- NOTE | 2024-06-12 15:50 | NUR ---
SHIFT SUMMARY AND PT EXPIRING PATIENT DECLINING OVER THE SHIFT. BECOMING LESS ALERT AND INCREASED RESPIRATORY DISTRESS. DR LIMA UPDATED THROUGHOUT THE SHIFT. CHEST XRAY DONE, IV LASIX GIVEN, FAMILY UPDATED ON PATIENT'S CONDITION THROUGHOUT THE DAY. PATIENT AT 1510. MICHAEL SALAZAR CONFIRMED. DR LIMA PRESENT WHEN PATIENT AGANAL. PALIATIVE CARE INVOLVED THROUGHOUT THE DAY. FAMILY ARRIVED JUST AFTER PATIENT . BELONGINGS SENT WITH FAMILY. DENTURES PLACED IN PATIENTS MOUTH. CHARGE NURSE NOTIFIED TO CALL MORTUARY.
[2024-06-12] MEDS ORDERED: Pantoprazole Sodium 40 MG Injection IV SCH (16:30)
[2024-06-12] MEDS ORDERED: SODIUM ACETATE 30 MEQ IV SCH (17:00)
[2024-06-12] MEDS ORDERED: SODIUM CHLORIDE IV SCH (17:00)
[2024-06-12] MEDS ORDERED: [UNRECOGNIZED DRUG - OTHER] IV SCH (17:00)
[2024-06-12] MEDS ORDERED: CALCIUM GLUCONATE IV SCH (17:00)
== END 2024-06-12 15:10 | DRG 871 ==
LOC: ER 12:51 → MEDS 12:52
PROVIDERS: Emergency Medicine; Family Medicine; Hospitalist; Internal Medicine; Internal Medicine Nephrology; Student in an Organized Health Care Education/Training Program; ADMIT Internal Medicine
PROC: 30233N1 Transfusion of Nonautologous Red Blood Cells into Peripheral Vein, Percutaneous Approach (ICD-10-PCS; principal; 2024-06-01)
PROC: 0T9B70Z Drainage of Bladder with Drainage Device, Via Natural or Artificial Opening (ICD-10-PCS; 2024-06-01)
PROC: 3E0336Z Introduction of Nutritional Substance into Peripheral Vein, Percutaneous Approach (ICD-10-PCS; 2024-06-01)
PROC: 3E03329 Introduction of Other Anti-infective into Peripheral Vein, Percutaneous Approach (ICD-10-PCS; 2024-06-01)
DX: A41.9 Sepsis, unspecified organism (principal); G92.8 Other toxic encephalopathy; J12.82 Pneumonia due to coronavirus disease 2019; J96.01 Acute respiratory failure with hypoxia; U07.1 COVID-19; N17.9 Acute kidney failure, unspecified; I12.0 Hypertensive chronic kidney disease with stage 5 chronic kidney disease or end stage renal disease; N39.0 Urinary tract infection, site not specified; E87.20 Acidosis, unspecified; J44.0 Chronic obstructive pulmonary disease with (acute) lower respiratory infection; E87.1 Hypo-osmolality and hyponatremia; K92.1 Melena; N18.5 Chronic kidney disease, stage 5; N25.81 Secondary hyperparathyroidism of renal origin; F05 Delirium due to known physiological condition; R71.0 Precipitous drop in hematocrit; J81.1 Chronic pulmonary edema; J90 Pleural effusion, not elsewhere classified; Z66 Do not resuscitate; Z51.5 Encounter for palliative care; R65.20 Severe sepsis without septic shock; E11.22 Type 2 diabetes mellitus with diabetic chronic kidney disease; E78.5 Hyperlipidemia, unspecified; S09.90XA Unspecified injury of head, initial encounter; R13.10 Dysphagia, unspecified; D63.1 Anemia in chronic kidney disease; E87.6 Hypokalemia; I49.9 Cardiac arrhythmia, unspecified; K59.00 Constipation, unspecified; E86.9 Volume depletion, unspecified; R19.7 Diarrhea, unspecified; F17.210 Nicotine dependence, cigarettes, uncomplicated; E86.0 Dehydration; R62.7 Adult failure to thrive; E88.09 Other disorders of plasma-protein metabolism, not elsewhere classified; Z88.8 Allergy status to other drugs, medicaments and biological substances; Z79.84 Long term (current) use of oral hypoglycemic drugs; Z79.82 Long term (current) use of aspirin; Z79.899 Other long term (current) drug therapy; Z88.5 Allergy status to narcotic agent; Z79.2 Long term (current) use of antibiotics; Z79.891 Long term (current) use of opiate analgesic; Z90.721 Acquired absence of ovaries, unilateral; Z96.643 Presence of artificial hip joint, bilateral; Z68.23 Body mass index [BMI] 23.0-23.9, adult; W18.30XA Fall on same level, unspecified, initial encounter; Z60.2 Problems related to living alone
CPT/HCPCS: 36415; 36430; 70450; 71045; 72125; 76770; 80048; 80053; 80069; 81001; 82271; 82550; 82607; 82728; 82746; 83540; 83550; 83605; 83735; 83880; 84100; 84478; 84484; 85014; 85018; 85025; 85045; 86850; 86900; 86901; 86923; 87077; 87086; 87324; 87493; 92507; 92523; 92526; 92610; 93005; 93010; 94640; 94664; 94760; 94762; 96361; 96365; 96366; 96372; 96374; 96375; 96376; 97110; 97162; 97166; 97530; 97535; 99285-25; A9270; C1751; G0378; J0360; J0612; J0696; J0881; J1644; J1940; J2405; J2470; J2919; J3411; J3480; J7030; J7120; J7131; P9016; P9612; U0002